=== PATIENT | male | born 1955 | race Caucasian/White ===

== ENCOUNTER 2018-09-13 05:58 | Day surgery (SDC) | payer MEDICARE, MEDICAID ==
[2018-09-08 11:01] LABS: CLARITY,URINE CLEAR (Clear); COLOR,URINE YELLOW (Yellow); GLUCOSE, URINE NEGATIVE (Neg); KETONES,URINE NEGATIVE (Neg); LEUKOCYTE ESTERASE ,URINE NEGATIVE (Neg); NITRITES, URINE NEGATIVE (Neg); OCCULT BLOOD,URINE NEGATIVE (Neg); PROTEIN,URINE NEGATIVE (Neg); UROBILINOGEN,URINE 0.2 E.U/dL (0.2-1.0)
[2018-09-08 11:02] LABS: UA COLLECTION TYPE CLN CATCH MIDSTREAM
[2018-09-08 11:05] LABS: BASOPHILS % (AUTO) 0.7 % (0-1); EOSINOPHILS # (AUTO) 0.3 X10'3 (0-0.9); EOSINOPHILS % (AUTO) 7.2 % (0-6); LYMPHOCYTES # (AUTO) 1.5 X10'3 (1.1-4.8); LYMPHOCYTES % (AUTO) 31.4 % (21-51); MEAN CORPUSCULAR HEMOGLOBIN 33.3 PG (27.0-31.0); MEAN CORPUSCULAR HGB CONC 33.8 g/dL (33.0-36.5); MEAN CORPUSCULAR VOLUME 98.6 FL (78-98); MEAN PLATELET VOLUME 8.3 FL (7.4-10.4); MONOCYTES # (AUTO) 0.8 X10'3 (0-0.9); MONOCYTES % (AUTO) 17.3 % (2-12); NEUTROPHILS % (AUTO) 43.4 % (42-75); PRE OP HEMATOCRIT 38.5 % (42.0-52.0); PRE OP PLATELET COUNT 152 X10'3 (140-440); RED BLOOD COUNT 3.91 X10'6 (4.70-6.10); RED CELL DISTRIBUTION WIDTH 14.1 % (11.5-14.5)
[2018-09-08 12:35] LABS: ALBUMIN 3.4 G/DL (3.4-5.0); ALBUMIN/GLOBULIN RATIO 1.1 (1.1-1.5); ALKALINE PHOSPHATASE 75 IU/L (46-116); BLOOD UREA NITROGEN 20 MG/DL (7-18); BUN/CREATININE RATIO 20.8 (5.4-32.0); CALCIUM 8.8 MG/DL (8.5-10.1); CHLORIDE 107 MMOL/L (99-107); CREATININE 0.96 MG/DL (0.60-1.10); PRE OP ALT 50 U/L (30-65); PRE OP ANION GAP 8 (8-16); PRE OP AST 34 U/L (10-37); PRE OP BILIRUB, TOTAL 0.4 MG/DL (0.0-1.0); PRE OP GLUCOSE 104 MG/DL (70-104); PRE OP POTASSIUM 4.4 MMOL/L (3.4-5.1); PRE OP SODIUM 141 MMOL/L (135-145); TOTAL CARBON DIOXIDE 26.5 MMOL/L (24-32); TOTAL PROTEIN 6.6 G/DL (6.4-8.2); eGFR 79 ML/MIN
[2018-09-13] VITALS (10 sets, daily range): BP systolic 127–175; BP diastolic 76–99
[~2018-09-13] VITALS: Ht 188 cm; Wt 103.5 kg
[~2018-09-13 05:58] MED LIST: ASPI-1265 PO; ATOR20TA PO; BUPR150T6 PO; CARB200T PO; HYDR-4353 PO; LORA10TA65 PO; LOSA25TA96 PO; MULT-1141 PO; NALO4SPR; NEOM10DR45 EACH EAR; SILD100T PO; cefazolin/dext.iso 2gm/50ml 50 ML IV ONE; famotidine 20mg tablet PO ONE; ringers solution, lacted 1,000 ML IV SCH
[2018-09-13] MEDS ORDERED: DONE5TAB7 PO (06:30)
[2018-09-13] MEDS ORDERED: ROPIVAcaine 0.5% (5mg/ml) 30ml vial ONE (06:48)
[2018-09-13] MEDS ORDERED: methylene blue (5mg/ml) 50mg/10ml ampul IV ONE (06:48)
[2018-09-13] MEDS ORDERED: LIDOcaine 1% (10mg/ml) 2ml vial ONE (06:59)
[2018-09-13] MEDS ORDERED: sevoflurane 250ml liquid IH ONE (08:30)
[2018-09-13] MEDS ORDERED: MIDAZolam 5mg/5ml vial ONE (08:39)
[2018-09-13] MEDS ORDERED: fentaNYL/PF 50MCG/1 ML 2ML syringe ONE (08:39)
[2018-09-13] MEDS ORDERED: propofol inj 20 ML IV ONE (08:40)
[2018-09-13] MEDS ORDERED: LIDOcaine 2% (20mg/ml) 5ml vial ONE (08:40)
[2018-09-13] MEDS ORDERED: ondansetron/PF 4mg/2ml inj ONE (08:54)
[2018-09-13] MEDS ORDERED: ketorolac trometh. 30mg/ml inj. ONE (08:55)
[2018-09-13] MEDS ORDERED: ringers solution, lacted 1,000 ML IV SCH (09:03)
[2018-09-13] MEDS ORDERED: proCHLORperazine 10 MG/2 ml inj IV PRN (09:05)
[2018-09-13] MEDS ORDERED: ondansetron/PF 4mg/2ml inj IV PRN (09:05)
[2018-09-13] MEDS ORDERED: morphine 4 MG/ML inj SYRINge IV PRN ×2 (09:05)
[2018-09-13] MEDS ORDERED: meperidine/PF 25mg/ml syringe IV PRN ×2 (09:05)
[2018-09-13] MEDS ORDERED: dexamethasone sod phosphate 4mg/ml inj. ONE (09:25)
--- NOTE | 2018-09-13 09:35 | NUR ---
Received from OR via bed, accompanied by Anesthesiologist. Report received. Initial physical assessment done and recorded.
[2018-09-13] MEDS: meperidine/PF 25mg/ml syringe IV PRN ×2 (09:56→10:19)
[2018-09-13] MEDS ORDERED: oxyCODONE/APAP 10/325mg tablet PO ONE (10:45)
--- NOTE | 2018-09-13 11:00 | NUR ---
Discharge criteria met, discharge instructions given, demonstrates verbal understanding. Discharged home in good condition.
== END 2018-09-13 11:00 | disposition home or self-care (01) ==
LOC: PAS 05:58
PROVIDERS: ATTEND Surgery
DX: K64.3 Fourth degree hemorrhoids (principal); K64.4 Residual hemorrhoidal skin tags; I10 Essential (primary) hypertension; E78.00 Pure hypercholesterolemia, unspecified; G43.909 Migraine, unspecified, not intractable, without status migrainosus; Z87.891 Personal history of nicotine dependence; Z98.890 Other specified postprocedural states
CPT/HCPCS: 36415; 46250; 46947; 80053; 81003; 82948; 85025; A6224; A6449; J0690; J1100; J1885; J2001; J2175; J2250; J2405; J2704; J3010; J3490; 88304; A7000; J2795; J7120

== ENCOUNTER 2019-05-05 09:48 | Day surgery (SDC) | payer MEDICARE, MEDICAID ==
[2019-05-02 12:29] LABS: BASOPHILS # (AUTO) 0.1 X10'3 (0-0.2); BASOPHILS % (AUTO) 1.1 % (0-1); EOSINOPHILS # (AUTO) 0.3 X10'3 (0-0.9); EOSINOPHILS % (AUTO) 4.7 % (0-6); HEMATOCRIT 40.3 % (42.0-52.0); HEMOGLOBIN 13.9 g/dl (14.0-17.9); LYMPHOCYTES # (AUTO) 2.1 X10'3 (1.1-4.8); LYMPHOCYTES % (AUTO) 38.5 % (21-51); MEAN CORPUSCULAR HEMOGLOBIN 34.7 PG (27.0-31.0); MEAN CORPUSCULAR HGB CONC 34.4 g/dL (33.0-36.5); MEAN CORPUSCULAR VOLUME 100.9 FL (78-98); MEAN PLATELET VOLUME 8.1 FL (7.4-10.4); MONOCYTES # (AUTO) 0.7 X10'3 (0-0.9); MONOCYTES % (AUTO) 12.5 % (2-12); NEUTROPHILS # (AUTO) 2.4 X10'3 (1.8-7.7); NEUTROPHILS % (AUTO) 43.2 % (42-75); PLATELET COUNT 212 X10'3 (140-440); WHITE BLOOD COUNT 5.5 X10'3 (4.5-11.0)
[2019-05-02 12:44] LABS: PARTIAL THROMBOPLASTIN TIME 26 SECONDS (22-32)
[2019-05-02 12:55] LABS: ALBUMIN 3.6 G/DL (3.4-5.0); ANION GAP 8 (8-16); BLOOD UREA NITROGEN 15 MG/DL (7-18); BUN/CREATININE RATIO 15.2 (5.4-32.0); CALCIUM 8.7 MG/DL (8.5-10.1); CHLORIDE 109 MMOL/L (99-107); CREATININE 0.99 MG/DL (0.60-1.10); GLUCOSE 103 MG/DL (70-104); POTASSIUM 4.3 MMOL/L (3.5-5.1); SODIUM 144 MMOL/L (135-145); eGFR 76 ML/MIN
[2019-05-05] VITALS (8 sets, daily range): BP systolic 101–135; BP diastolic 60–81
[~2019-05-05] VITALS: Ht 188 cm; Wt 106.2 kg
[~2019-05-05 09:48] MED LIST changes: +DONE5TAB7 PO; -cefazolin/dext.iso 2gm/50ml 50 ML IV ONE; -famotidine 20mg tablet PO ONE; -ringers solution, lacted 1,000 ML IV SCH
[2019-05-05] MEDS ORDERED: LORazepam 0.5 MG tablet PO PRN (10:15)
[2019-05-05] MEDS ORDERED: diphenhydrAMINE 25mg capsule PO PRN (10:15)
[2019-05-05] MEDS ORDERED: normal saline 1,000 ML IV SCH (10:15)
[2019-05-05] MEDS ORDERED: iohexol 350MG/ML 100ml bottle IV ONE (13:03)
[2019-05-05] MEDS ORDERED: LIDOcaine 1% W/epiNEPHrine 1:100,000 20ml vial ONE (13:03)
[2019-05-05] MEDS ORDERED: fentaNYL/PF 50MCG/1 ML 2ML syringe ONE (13:03)
[2019-05-05] MEDS ORDERED: midazolam 2 mg/2 ml injection ONE ×2 (13:03→13:22)
[2019-05-05] MEDS ORDERED: HYDROcodone/acetaminophen 5mg/325mg tablet PO PRN (14:30)
[2019-05-05] MEDS ORDERED: HYDROcodone/acetaminophen 10/325mg tab PO PRN (14:30)
[2019-05-05] MEDS ORDERED: proCHLORperazine 10 MG/2 ml inj IV PRN (14:30)
[2019-05-05] MEDS ORDERED: ondansetron/PF 4mg/2ml inj IV PRN (14:30)
[2019-05-05] MEDS ORDERED: OXAZEpam 15mg capsule PO PRN (14:30)
== END 2019-05-05 17:00 | disposition home or self-care (01) ==
LOC: SSTAY O 09:48
PROVIDERS: ATTEND Internal Medicine Interventional Cardiology
DX: R07.2 Precordial pain (principal); I25.119 Atherosclerotic heart disease of native coronary artery with unspecified angina pectoris; I12.9 Hypertensive chronic kidney disease with stage 1 through stage 4 chronic kidney disease, or unspecified chronic kidney disease; N18.9 Chronic kidney disease, unspecified; E78.5 Hyperlipidemia, unspecified; Z98.890 Other specified postprocedural states; Z79.899 Other long term (current) drug therapy; Z79.82 Long term (current) use of aspirin
CPT/HCPCS: 36415; 80048; 85025; 85610; 85730; 93005; 93459; 99152; 99153; C1769; J1644; J2250; J3010; J7030; Q0163; Q9967; A4620; A6258

== ENCOUNTER 2023-03-18 11:52 | Emergency (ER) | payer MEDICARE, MEDICAID ==
[~2023-03-18] VITALS: Ht 188 cm; Wt 109.1 kg
[~2023-03-18 11:52] MED LIST changes: +ALBU18HF2 PO; -ATOR20TA PO; +ATOR40TA71 PO; +BUPR-319 PO; -BUPR150T6 PO; +DONE10TA19 PO; -DONE5TAB7 PO; +FLUT16SP11 BOTHNARES; +MAGN400C PO; +MEMA10TA56 PO; -NEOM10DR45 EACH EAR; +OMEG1CAP46 PO; -SILD100T PO; +TRAZ-251 PO; +VENL75CA61 PO
[2023-03-18 12:13] LABS: BASOPHILS % (AUTO) 0.5 % (0-1); EOSINOPHILS # (AUTO) 0.2 X10'3 (0-0.9); EOSINOPHILS % (AUTO) 3.4 % (0-6); HEMATOCRIT 41.9 % (42.0-52.0); HEMOGLOBIN 13.9 g/dl (14.0-17.9); LYMPHOCYTES # (AUTO) 3.5 X10'3 (1.1-4.8); LYMPHOCYTES % (AUTO) 50.6 % (21-51); MEAN CORPUSCULAR HEMOGLOBIN 34.9 PG (27.0-31.0); MEAN CORPUSCULAR HGB CONC 33.3 g/dL (33.0-36.5); MEAN CORPUSCULAR VOLUME 104.8 FL (78-98); MEAN PLATELET VOLUME 7.8 FL (7.4-10.4); NEUTROPHILS # (AUTO) 2.2 X10'3 (1.8-7.7); NEUTROPHILS % (AUTO) 31.5 % (42-75); PLATELET COUNT 210 X10'3 (140-440); RED BLOOD COUNT 3.99 X10'6 (4.70-6.10); RED CELL DISTRIBUTION WIDTH 14.1 % (11.5-14.5); WHITE BLOOD COUNT 6.9 X10'3 (4.5-11.0)
[2023-03-18 12:26] LABS: ALANINE AMINOTRANSFERASE 73 U/L (12-78); ALBUMIN 3.3 G/DL (3.4-5.0); ALBUMIN/GLOBULIN RATIO 0.9 (1.1-1.5); ALKALINE PHOSPHATASE 104 IU/L (46-116); ANION GAP 6 (8-16); ASPARTATE AMINO TRANSFERASE 37 U/L (10-37); BILIRUBIN,TOTAL 0.3 MG/DL (0.1-1.0); BLOOD UREA NITROGEN 17 MG/DL (7-18); CALCIUM 8.6 MG/DL (8.5-10.1); CHLORIDE 107 MMOL/L (99-107); CREATININE 1.06 MG/DL (0.60-1.10); GLUCOSE 106 MG/DL (70-104); SODIUM 140 MMOL/L (135-145); TOTAL CARBON DIOXIDE 27.3 MMOL/L (24-32); TOTAL PROTEIN 6.9 G/DL (6.4-8.2); eGFR 69 ML/MIN
[2023-03-18 12:34] LABS: PRO BRAIN NATRIURETIC PEPTIDE 489 PG/ML (0-125)
[2023-03-18] MEDS ORDERED: morphine 4 MG/ML inj SYRINge IV ONE ×2 (16:15→19:10)
[2023-03-18] MEDS ORDERED: timolol 0.5% ophthalmic solution 5ml bottle RIGHTEYE ONE (16:50)
[2023-03-18] MEDS ORDERED: prednisoLONE acetate 1% ophth susp 5ml RIGHTEYE SCH ×2 (19:25→20:00)
[2023-03-18] MEDS ORDERED: moxifloxacin 0.5% ophthalmic drops 3ml RIGHTEYE SCH ×2 (20:00)
[2023-03-18] MEDS ORDERED: timolol 0.5% ophthalmic solution 5ml bottle LEFTEYE SCH (20:00)
[2023-03-18] MEDS ORDERED: prednisoLONE acetate 1% ophth susp 5ml LEFTEYE SCH (20:00)
[2023-03-18] MEDS ORDERED: moxifloxacin 0.5% ophthalmic drops 3ml LEFTEYE SCH (20:00)
[2023-03-18 20:18] VITALS: BP 163/108; PULSE 71; RESP 14; TEMP 98.2; O2SAT 98
[2023-03-18] MEDS ORDERED: timolol 0.5% ophthalmic solution 5ml bottle RIGHTEYE SCH (21:00)
== END 2023-03-18 20:21 | disposition home or self-care (01) ==
LOC: ER 11:52
DX: I48.92 Unspecified atrial flutter (principal); Z79.899 Other long term (current) drug therapy
CPT/HCPCS: 36415; 71045; 80053; 83880; 84484; 85025; 93005; 96374; 99285; J2270

== ENCOUNTER 2023-11-26 09:02 | Day surgery (SDC) | payer MEDICAID, MEDICARE, OTHER ==
[2023-11-19 10:37] LABS: BILIRUBIN,URINE NEGATIVE (Neg); CLARITY,URINE CLEAR (Clear); COLOR,URINE YELLOW (Yellow); GLUCOSE, URINE NEGATIVE (Neg); KETONES,URINE NEGATIVE (Neg); LEUKOCYTE ESTERASE ,URINE NEGATIVE (Neg); NITRITES, URINE NEGATIVE (Neg); OCCULT BLOOD,URINE NEGATIVE (Neg); PROTEIN,URINE NEGATIVE (Neg); UROBILINOGEN,URINE 0.2 E.U/dL (0.2-1.0)
[2023-11-19 10:42] LABS: BASOPHILS % (AUTO) 0.7 % (0-1); EOSINOPHILS # (AUTO) 0.3 X10'3 (0-0.9); EOSINOPHILS % (AUTO) 5.4 % (0-6); HEMATOCRIT 40.5 % (42.0-52.0); HEMOGLOBIN 13.5 g/dl (14.0-17.9); LYMPHOCYTES # (AUTO) 2.1 X10'3 (1.1-4.8); LYMPHOCYTES % (AUTO) 33.9 % (21-51); MEAN CORPUSCULAR HEMOGLOBIN 34.9 PG (27.0-31.0); MEAN CORPUSCULAR HGB CONC 33.4 g/dL (33.0-36.5); MEAN CORPUSCULAR VOLUME 104.4 FL (78-98); MEAN PLATELET VOLUME 8.2 FL (7.4-10.4); MONOCYTES # (AUTO) 0.8 X10'3 (0-0.9); MONOCYTES % (AUTO) 13.3 % (2-12); NEUTROPHILS # (AUTO) 2.9 X10'3 (1.8-7.7); NEUTROPHILS % (AUTO) 46.7 % (42-75); PLATELET COUNT 198 X10'3 (140-440); RED BLOOD COUNT 3.88 X10'6 (4.70-6.10); WHITE BLOOD COUNT 6.2 X10'3 (4.5-11.0)
[2023-11-19 10:44] LABS: UA COLLECTION TYPE CLN CATCH MIDSTREAM
[2023-11-19 11:24] LABS: ALANINE AMINOTRANSFERASE 35 U/L (12-78); ALBUMIN 3.3 G/DL (3.4-5.0); ALBUMIN/GLOBULIN RATIO 0.9 (1.1-1.5); ALKALINE PHOSPHATASE 99 IU/L (46-116); ANION GAP 4 (8-16); ASPARTATE AMINO TRANSFERASE 23 U/L (10-37); BILIRUBIN,TOTAL 0.5 MG/DL (0.1-1.0); BLOOD UREA NITROGEN 16 MG/DL (7-18); BUN/CREATININE RATIO 18.6 (10.0-20.0); CALCIUM 8.8 MG/DL (8.5-10.1); CHLORIDE 107 MMOL/L (99-107); CREATININE 0.86 MG/DL (0.60-1.10); GLUCOSE 105 MG/DL (70-104); POTASSIUM 4.5 MMOL/L (3.5-5.1); SODIUM 142 MMOL/L (135-145); TOTAL CARBON DIOXIDE 31.1 MMOL/L (24-32); TOTAL PROTEIN 6.9 G/DL (6.4-8.2); eGFR 88 ML/MIN
[2023-11-26] VITALS (14 sets, daily range): BP systolic 113–159; BP diastolic 71–110; PULSE 95–128; RESP 13–20; TEMP 98.2; O2SAT 95–100
[~2023-11-26] VITALS: Ht 188 cm; Wt 102.7 kg
[2023-11-26] MEDS: cefazolin 2gm/D5W 100mL 100 ML IV ONE (05:30)
[~2023-11-26 09:02] MED LIST changes: -ALBU18HF2 PO; +APIX5TAB3 PO; -FLUT16SP11 BOTHNARES; +LOSA-415 PO; -LOSA25TA96 PO; +MEMA10TA22 PO; -MEMA10TA56 PO; -NALO4SPR; +SILD100T PO; -TRAZ-251 PO
[2023-11-26] MEDS ORDERED: labetalol 20mg/4ml (5mg/ml) syringe IV PRN (09:15)
[2023-11-26] MEDS ORDERED: HYDROmorphone/PF 0.2 MG/ML SYRINGE IV PRN ×2 (09:15)
[2023-11-26] MEDS ORDERED: hydrALAZINE 20mg/ml inj. IV PRN (09:15)
[2023-11-26] MEDS ORDERED: ringers solution, lacted 1,000 ML IV SCH (09:15)
[2023-11-26] MEDS ORDERED: ondansetron/PF 4mg/2ml inj IV PRN (09:15)
[2023-11-26] MEDS ORDERED: proCHLORperazine 10 MG/2 ml inj IV PRN (09:15)
[2023-11-26] MEDS ORDERED: morphine 4 MG/ML inj SYRINge IV PRN (09:15)
[2023-11-26] MEDS ORDERED: morphine 2 MG/ML inj. syringe IV PRN (09:15)
[2023-11-26] MEDS: famotidine 20mg tablet PO ONE (09:39)
[2023-11-26] MEDS: ringers solution, lacted 1,000 ML IV SCH (09:41)
[2023-11-26] MEDS ORDERED: sevoflurane 250ml liquid IH ONE (11:20)
[2023-11-26] MEDS ORDERED: midazolam 1 mg/ML 2ml injection ONE (11:23)
[2023-11-26] MEDS ORDERED: fentaNYL/PF 50MCG/1 ML 2ML syringe ONE (11:23)
[2023-11-26] MEDS ORDERED: dexamethasone sod phosphate 4mg/ml inj. ONE (11:51)
[2023-11-26] MEDS ORDERED: ROPIVAcaine 0.5% (5mg/ml) 30ml vial ONE (11:51)
[2023-11-26] MEDS ORDERED: propofol inj 20 ML IV ONE (11:51)
[2023-11-26] MEDS ORDERED: ondansetron/PF 4mg/2ml inj ONE (11:51)
[2023-11-26] MEDS ORDERED: 0.9 % SODIUM CHLORIDE 10 ML VIAL ONE ×3 (11:51→12:54)
[2023-11-26] MEDS ORDERED: LIDOcaine 2% (20mg/ml) 5ml vial ONE (11:52)
[2023-11-26] MEDS ORDERED: ePHEDrine 50MG/ML INJ. ONE (11:52)
[2023-11-26] MEDS ORDERED: phenylephrine 10mg/ml inj. -priapism dosing ONE (12:54)
[2023-11-26] MEDS: acetaminophen 1,000mg/100ml IV 100 ML IV ONE (13:34)
[2023-11-26] MEDS: meperidine/PF 25mg/ml syringe IV PRN (14:09)
== END 2023-11-26 14:45 | disposition home or self-care (01) ==
LOC: PAS 09:02
PROVIDERS: ATTEND Podiatrist Foot & Ankle Surgery
DX: T84.84XA Pain due to internal orthopedic prosthetic devices, implants and grafts, initial encounter (principal); M65.871 Other synovitis and tenosynovitis, right ankle and foot; M94.271 Chondromalacia, right ankle and joints of right foot; M19.071 Primary osteoarthritis, right ankle and foot; G89.18 Other acute postprocedural pain; I10 Essential (primary) hypertension; E78.00 Pure hypercholesterolemia, unspecified; I48.91 Unspecified atrial fibrillation; I48.92 Unspecified atrial flutter; G43.909 Migraine, unspecified, not intractable, without status migrainosus; Z87.891 Personal history of nicotine dependence; Z79.01 Long term (current) use of anticoagulants; Z79.82 Long term (current) use of aspirin; Z79.899 Other long term (current) drug therapy; Z98.890 Other specified postprocedural states; Y79.2 Prosthetic and other implants, materials and accessory orthopedic devices associated with adverse incidents; Y92.89 Other specified places as the place of occurrence of the external cause
CPT/HCPCS: 20680; 29898; 36415; 64445; 64447; 73600; 80053; 81003; 82948; 85025; A6222; J0131; J0690; J0735; J1100; J2175; J2250; J2371; J2405; J2704; J2795; J3010; J3490; J7120; L4360; Z7506; Z7508; Z7512; 76000; A4215; A4615; A4618; A6449; A7000; J2370

== ENCOUNTER 2024-09-12 10:25 | Day surgery (SDC) | payer MEDICARE, MEDICAID ==
[~2024-09-12] VITALS: Ht 188 cm; Wt 110.2 kg
[2024-09-12] VITALS (8 sets, daily range): BP systolic 115–159; BP diastolic 71–104; PULSE 73–79; RESP 11–16; TEMP 98.2; O2SAT 96–100
[~2024-09-12 10:25] MED LIST changes: -BUPR-319 PO; +BUPR-565 PO
[2024-09-12] MEDS ORDERED: ICOS1CAP2 PO (11:29)
[2024-09-12] MEDS ORDERED: AMI200T PO (11:29)
[2024-09-12] MEDS ORDERED: CARB200T8 PO (11:29)
[2024-09-12] MEDS ORDERED: FLUT16SP26 (11:29)
[2024-09-12] MEDS ORDERED: ALBU18HF2 (11:29)
[2024-09-12] MEDS ORDERED: GABA300T28 (11:29)
[2024-09-12] MEDS: MIDAZolam 1mg/ml 10ml vial IV ONE (12:53)
[2024-09-12] MEDS: fentaNYL/PF 50MCG/1 ML 2ML syringe IV ONE (12:54)
[2024-09-12] MEDS: normal saline 1000ml 1,000 ML IV SCH (12:54)
== END 2024-09-12 14:10 | disposition home or self-care (01) ==
LOC: SSTAY O 10:25
PROVIDERS: ATTEND Student in an Organized Health Care Education/Training Program
DX: I48.91 Unspecified atrial fibrillation (principal); I10 Essential (primary) hypertension; I25.10 Atherosclerotic heart disease of native coronary artery without angina pectoris; I70.1 Atherosclerosis of renal artery; I48.92 Unspecified atrial flutter; Z79.899 Other long term (current) drug therapy; Z98.890 Other specified postprocedural states
CPT/HCPCS: 92960; 93005; J2250; J3010; J7030; Z7610

== ENCOUNTER 2024-09-17 22:25 | Emergency (ER) | payer MEDICARE, MEDICAID ==
[~2024-09-17] VITALS: Ht 188 cm; Wt 111.3 kg
[~2024-09-17 22:25] MED LIST changes: +ALBU18HF2; +AMI200T PO; -ASPI-1265 PO; -CARB200T PO; +CARB200T8 PO; +FLUT16SP26; +GABA300T28; +ICOS1CAP2 PO; -OMEG1CAP46 PO
[2024-09-17 22:35] VITALS: TEMP 98
[2024-09-17 22:48] LABS: BASOPHILS # (AUTO) 0.1 X10'3 (0-0.2); BASOPHILS % (AUTO) 0.7 % (0-1); EOSINOPHILS # (AUTO) 0.4 X10'3 (0-0.9); EOSINOPHILS % (AUTO) 3.8 % (0-6); HEMATOCRIT 38.1 % (42.0-52.0); HEMOGLOBIN 13.2 g/dl (14.0-17.9); LYMPHOCYTES # (AUTO) 2.3 X10'3 (1.1-4.8); LYMPHOCYTES % (AUTO) 24.1 % (21-51); MEAN CORPUSCULAR HEMOGLOBIN 36.4 PG (27.0-31.0); MEAN CORPUSCULAR HGB CONC 34.6 g/dL (33.0-36.5); MEAN CORPUSCULAR VOLUME 105.4 FL (78-98); MEAN PLATELET VOLUME 7.3 FL (7.4-10.4); MONOCYTES # (AUTO) 0.8 X10'3 (0-0.9); NEUTROPHILS % (AUTO) 63.4 % (42-75); PLATELET COUNT 160 X10'3 (140-440); RED BLOOD COUNT 3.61 X10'6 (4.70-6.10); RED CELL DISTRIBUTION WIDTH 13.7 % (11.5-14.5); WHITE BLOOD COUNT 9.5 X10'3 (4.5-11.0)
[2024-09-17 23:01] LABS: ALANINE AMINOTRANSFERASE 44 U/L (12-78); ALBUMIN 3.1 G/DL (3.4-5.0); ALBUMIN/GLOBULIN RATIO 0.8 (1.1-1.5); ALKALINE PHOSPHATASE 118 IU/L (46-116); ANION GAP 6 (8-16); ASPARTATE AMINO TRANSFERASE 26 U/L (10-37); BILIRUBIN,TOTAL 0.8 MG/DL (0.1-1.0); BLOOD UREA NITROGEN 16 MG/DL (7-18); BUN/CREATININE RATIO 15.2 (10.0-20.0); CALCIUM 8.6 MG/DL (8.5-10.1); CHLORIDE 106 MMOL/L (99-107); CREATININE 1.05 MG/DL (0.60-1.10); GLUCOSE 116 MG/DL (70-104); POTASSIUM 4.2 MMOL/L (3.5-5.1); SODIUM 139 MMOL/L (135-145); TOTAL CARBON DIOXIDE 26.7 MMOL/L (24-32); TOTAL PROTEIN 7.1 G/DL (6.4-8.2); eCRCL 75 ML/MIN; eGFR 70 ML/MIN
[2024-09-17 23:06] LABS: D-DIMER 1.17 MG/L FEU (0-0.50)
[2024-09-17 23:10] LABS: PRO BRAIN NATRIURETIC PEPTIDE 780 PG/ML (0-125)
[2024-09-18] MEDS ORDERED: iohexol 350MG/ML 100ml bottle IV ONE (00:06)
[2024-09-18 00:51] VITALS: BP 170/99; PULSE 88; RESP 26; O2SAT 98
[2024-09-18] MEDS ORDERED: AZIT-164 PO (01:07)
[2024-09-18] MEDS ORDERED: AMOX-419 PO (01:07)
[2024-09-18] MEDS: ondansetron 4mg rapidly disintigrating tab PO ONE (01:10)
[2024-09-18] MEDS: azithromycin 250mg tablet PO ONE (01:10)
[2024-09-18] MEDS: amox tr/potassium clavulanate 500mg/125mg TAB PO ONE (01:11)
== END 2024-09-18 01:41 | disposition home or self-care (01) ==
LOC: ER 22:26
DX: J18.9 Pneumonia, unspecified organism (principal); M19.90 Unspecified osteoarthritis, unspecified site
CPT/HCPCS: 36415; 71045; 71275; 80053; 83880; 84484; 85025; 85379; 93005; 99285; Q9967

== ENCOUNTER 2024-10-04 08:04 | Outpatient (CLI) | payer OTHER ==
[~2024-10-04 08:04] MED LIST changes: +AZIT-164 PO
== END 2024-10-04 23:59 | disposition home or self-care (01) ==
LOC: MRI02 08:04
PROVIDERS: ATTEND Podiatrist Foot & Ankle Surgery
DX: M19.071 Primary osteoarthritis, right ankle and foot (principal); S82.899A Other fracture of unspecified lower leg, initial encounter for closed fracture; M25.471 Effusion, right ankle; X58.XXXA Exposure to other specified factors, initial encounter; Y93.89 Activity, other specified; Y92.89 Other specified places as the place of occurrence of the external cause; Y99.8 Other external cause status
CPT/HCPCS: 73721

== ENCOUNTER 2025-01-10 14:27 | Outpatient (CLI) | payer MEDICARE, MEDICAID ==
[~2025-01-10 14:27] MED LIST changes: -AZIT-164 PO; +BUPR-557 PO; -BUPR-565 PO
--- NOTE | 2025-01-10 16:26 | RADIOLOGY REPORT ---
INDICATION: WORSENING CHRONIC LOWER BACK PAIN COMPARISON: 3 TECHNIQUE: 5 views of the lumbar spine were obtained. FINDINGS: The lumbar vertebral alignment is normal. Multilevel degenerative changes most severe L4-L5 through L5-S1 causing moderate to severe neural for aminal and spinal canal stenosis. No acute fracture, vertebral compression deformity or aggressive osseous lesions. The paravertebral soft tissues are grossly unremarkable. IMPRESSION: No acute fracture or subluxation.
--- NOTE | 2025-01-11 11:23 | RADIOLOGY REPORT ---
EXAM: MR MRI LUMBAR SPINE HISTORY: LOW BACK PAIN COMPARISON: None TECHNIQUE: MRI was performed utilizing multiple appropriate imaging planes and pulse sequences. FINDINGS: For the purposes of this report, the last square-shaped vertebra is considered L5. Prior to any surg cathy, correlation with lumbar spine radiographs should be done. VERTEBRAE: No significant compression deformity is noted. No suspicious lesion is seen. SPINAL CORD: Terminates at the L1 level. No evidence of cord edema or myelomalacia within the parti ally visualized conus medullaris. PARASPINAL SOFT TISSUES: Unremarkable. INTERVERTEBRAL DISCS: T12-L1: No disc herniation, central canal stenosis or neural foramina narrowing. The posterior facet s and ligamentum flavum are unremarkable. L1-L2: Mild broad-based posterior disc bulge, subcentimeter central annular fissure, modic type 1 dis cogenic endplate changes along the superior endplate of L2, mild bilateral posterior facet and ligame nta flava hypertrophy with resultant mild central canal stenosis and mild bilateral neural foramina s tenosis without definite nerve impingement. L2-L3: 2 mm degenerative grade 1 anterolisthesis without pars defects, moderate reduction in disc he ight, mild broad-based posterior disc bulge, subcentimeter central annular fissure, moderate bilatera l posterior facet and ligamentum flavum hypertrophy and prominent posterior fat pad with mild central canal stenosis and mild bilateral neural foramina stenosis with impingement of the bilateral emergin g L3 nerve roots. L3-L4: Mild broad-based posterior disc bulge, moderate bilateral posterior facet and ligamentum fla vum hypertrophy , trace bilateral facet joint effusions and a prominent posterior fat pad with result ant mild central canal stenosis and mild bilateral neural foramina stenosis with impingement of the b ilateral emerging L4 nerve roots and abutment of the left exiting L3 nerve. L4-L5: 5 mm degenerative grade 1 anterolisthesis without pars defects, moderate reduction in disc h eight, mild broad-based posterior disc-osteophyte complex, modic type 1 discogenic endplate changes o n both sides of the disc, moderate bilateral posterior facet and ligamentum flavum hypertrophy and pr ominent posterior fat pad with mild central canal stenosis and moderate bilateral neural foraminal st enosis with impingement of the bilateral emerging L5 nerve roots and abutment of the bilateral exitin g L4 nerves. L5-S1: Mild broad-based posterior disc bulge, moderate bilateral posterior facet and ligamenta flava hypertrophy with resultant mild central canal stenosis and mild bilateral neural foramina stenosis w ithout definite nerve impingement. OTHER: None. IMPRESSION: Multilevel degenerative disc disease and posterior facet arthropathy with evidence of nerve impingeme nt at L2-L5 levels. L2-L3: 2 mm degenerative grade 1 anterolisthesis without pars defects, moderate reduction in disc he ight, mild broad-based posterior disc bulge, subcentimeter central annular fissure, moderate bilatera l posterior facet and ligamentum flavum hypertrophy and prominent posterior fat pad with mild central canal stenosis and mild bilateral neural foramina stenosis with impingement of the bilateral emergin g L3 nerve roots. L3-L4: Mild broad-based posterior disc bulge, moderate bilateral posterior facet and ligamentum fla vum hypertrophy , trace bilateral facet joint effusions and a prominent posterior fat pad with result ant mild central canal stenosis and mild bilateral neural foramina stenosis with impingement of the b ilateral emerging L4 nerve roots and abutment of the left exiting L3 nerve. L4-L5: 5 mm degenerative grade 1 anterolisthesis without pars defects, moderate reduction in disc h eight, mild broad-based posterior disc-osteophyte complex, modic type 1 discogenic endplate changes o n both sides of the disc, moderate bilateral posterior facet and ligamentum flavum hypertrophy and pr ominent posterior fat pad with mild central canal stenosis and moderate bilateral neural foraminal st enosis with impingement of the bilateral emerging L5 nerve roots and abutment of the bilateral exitin g L4 nerves. L5-S1: Mild broad-based posterior disc bulge, moderate bilateral posterior facet and ligamenta flava hypertrophy with resultant mild central canal stenosis and mild bilateral neural foramina stenosis w ithout definite nerve impingement. L1-L2: Mild broad-based posterior disc bulge, subcentimeter central annular fissure, modic type 1 dis cogenic endplate changes along the superior endplate of L2, mild bilateral posterior facet and ligame nta flava hypertrophy with resultant mild central canal stenosis and mild bilateral neural foramina s tenosis without definite nerve impingement.
== END 2025-01-10 23:59 | disposition home or self-care (01) ==
LOC: MRI02 14:27
PROVIDERS: ATTEND Nurse Practitioner
DX: M47.817 Spondylosis without myelopathy or radiculopathy, lumbosacral region (principal); M54.50 Low back pain, unspecified; M48.07 Spinal stenosis, lumbosacral region; M43.16 Spondylolisthesis, lumbar region
CPT/HCPCS: 72110; 72148

== ENCOUNTER 2025-06-29 15:36 | Outpatient (CLI) | payer MEDICARE, MEDICAID ==
[~2025-06-29 15:36] MED LIST changes: -AMI200T PO; +AMIO200T76 PO; +CARB-78 PO; -CARB200T8 PO
--- NOTE | 2025-06-29 16:24 | RADIOLOGY REPORT ---
PROCEDURE: CT CT CHEST LOW DOSE Reason for study/Clinical History: NICOTINE DEPENDENCE, CIGARETTES, IN REMISSION COMPARISON: CT CTA CHEST PE W/ IV CONTRAST on DOS: 09/17/24, DI CHEST,SINGLE VIEW on DOS: 09/17/24, DI CHEST,SINGLE VIEW on DOS: 03/18/23 TECHNIQUE: Multidetector CT of the chest was performed from the lung apices to the upper abdomen without the use of intravenous contract. Axial, coronal and sagittal multiplanar reformats were performed. Radiation Dose Information: CT Dose: CTDI volume is 3.74 mGy. Dose-length product is 143.65 mGy*cm The dose indicators for CT are the volume Computed Tomography (CT) Dose Index (CTDIvol) and the Dose Length Product (DLP), and are measured in units of mGy and mGy-cm, respectively. These indicators are not patient dose, but values generated from the CT scanner acquisition factors. The report includes radiation exposure data for exposures received during this examination. FINDINGS: Lower neck: Normal thyroid. Lungs: Central airways patent. Heart/Vascular Structures: Normal heart size. Coronary calcifications. No pericardial effusion. Lymph Nodes: No adenopathy Pleura: No pleural effusion or significant pneumothorax. Musculoskeletal: No acute osseous abnormality. Soft tissues: Normal. Upper abdomen: Limited portions of the upper abdomen are unremarkable. IMPRESSION: No suspicious pulmonary nodule. LUNG RADS Category 1: Continue annual screening with LDCT
== END 2025-06-29 23:59 | disposition home or self-care (01) ==
LOC: RAD 15:36
PROVIDERS: ATTEND Nurse Practitioner
DX: Z12.2 Encounter for screening for malignant neoplasm of respiratory organs (principal); F17.211 Nicotine dependence, cigarettes, in remission; I25.10 Atherosclerotic heart disease of native coronary artery without angina pectoris
CPT/HCPCS: 71250